=== PATIENT | male | born 1955 | race Caucasian/White ===

== ENCOUNTER 2023-07-22 13:46 | Emergency (ER) | payer MEDICARE, OTHER, SELFPAY ==
[2023-07-22 13:50] VITALS: BP 167/85
[2023-07-22 13:59] VITALS: BMI 24.3
[2023-07-22 14:00] VITALS: BP 150/76
[2023-07-22 14:49] LABS: % Basophils 0.7 % (0-2); % Eosinophils 1.5 % (0-6); % Immature Granulocytes 0.3 % (0-0.5); % Monocytes 8.5 % (1.7-9.3); Absolute Eosinophils 0.1 10^3/uL (0-0.7); Absolute Monocytes 0.5 10^3/uL (0.1-0.6); Absolute Neutrophils 3.5 10^3/uL (1.4-6.5); Hematocrit 41.8 % (39.0-52.0); Hemoglobin 14.7 g/dL (13.0-18.0); Mean Corp Hgb Conc. 35.2 g/dL (33.0-37.0); Mean Corpuscular Hgb 29.8 pg (27.0-31.0); Mean Corpuscular Volume 84.6 fL (80.0-94.0); Mean Platelet Volume 8.5 fL (7.4-10.4); Nucleated Red Blood Cells % 0 % (-); Platelet Count 195 10^3/uL (130-400); Red Blood Cell Count 4.94 10^6/uL (4.70-6.10); White Blood Cell Count 6.1 10^3/uL (4.8-10.8)
[2023-07-22 14:58] LABS: INR 1.09; PT 13.9 Sec (11.4-14.6)
[2023-07-22 14:59] LABS: APTT 29.6 Sec (23.4-35.0)
[2023-07-22] MEDS: MORPHINE SULFATE 4 MG IV (14:59)
[2023-07-22 15:00] VITALS: BP 154/99
--- NOTE | 2023-07-22 15:26 | EDRN ---
Per Dr. Sweeney okay to wait on EKG until we can get pt more comfortable and have a non artifact EKG.
[2023-07-22] MEDS: DILAUDID 0.5 MG IV (16:40)
--- NOTE | 2023-07-22 17:43 | ED.GENMED ---
History of Present Illness
General
Chief Complaint: Fall
Source: patient and family (Daughters)
Exam Limitations: none
Time Seen by Provider: 07/22/23 14:20
Nursing documentation reviewed up to this point in time: agreed with
Travel History
Have you had any contact with someone who has COVID-19?: No
Do you have any symptoms of coronavirus? Fever > 100 degrees, chills, cough, shortness of breath, sore throat, loss of taste or smell, muscle aches, or headache?: No
History of Present Illness
History of Present Illness:
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
room with his daughter for evaluation after a fall. Patient walks with a walker at baseline. Apparently he tripped today in the house and fell forward. He hit his head on the floor. He did not lose consciousness. He landed on his right hip and
has had significant pain in the hip since. He denies any significant headache. Denies any neck pain. Denies any chest or abdominal pain. He denies any back pain. He denies any other complaints. He is not on any blood thinners.
Past History
Past History
ED Past Medical History: None
ED Past Surgical History: None
Social History
Tobacco: Non-smoker
Alcohol: None
Drug: None
Living: with family
Review of Systems
Review of Systems
All Other Systems: ROS reviewed and negative except as documented in HPI and ROS
Constitutional: Denies fever
Respiratory: Denies trouble breathing
Cardiac: Denies chest pain
ABD/GI: Denies abdominal pain, nausea or vomiting
: Denies flank pain
Musculoskeletal: Reports joint pain; Denies neck pain or back pain
Neurological: Denies dizzy or headache
Phy Exam
Physical Exam
Physical Exam:
General: Awake, alert, no acute distress
Head: Normocephalic, minor contusion to the left parietal scalp
Eyes: Conjunctiva normal, pupils equal round and reactive to light bilateral
Throat: Airway intact, handling secretions
Neck: Trachea midline, no cervical spine tenderness
Lungs: Clear to auscultation bilaterally, no wheezing, rales, rhonchi
Heart: Regular rate and rhythm, no murmurs, gallops, or rubs; no rib tenderness
Abd: Soft, non distended, nontender
Neuro: GCS 15, awake, alert
Skin: Contusion of the left parietal scalp, no lacerations or abrasions noted, skin grafting of the right lateral hip
Extremities: Patient has shortened and rotated right lower extremity, significant tenderness of the lateral hip on the right and pain with any attempts at motion of the right hip; no tenderness in the rest of the right lower extremity and he has a
good strong right DP pulse as well as a strong right femoral pulse; he has no tenderness over pain with movement of the left hip and no tenderness in the rest of the left lower extremity, no signs of trauma to the upper extremities and moving
comfortably
Scores
Heart Failure Risk
Heart Failure Risk Score: Not Applicable
Heart Score for Chest Pain Patients
STEMI patient?: Not applicable
Withdrawal Assessment of Alcohol
Withdrawal Assessment Completed?: Not applicable
Course
Orders/Labs/Results
Orders:
Orders
07/22/23 14:23
Electrocardiogram (*1) Urgent
Reason for Study: PreOp
CT Cervical Spine W/o Iv Contr Urgent
Comment:
Reason For Exam: fall with headstrike
CT Head W/o Iv Contrast Urgent
Comment:
Reason For Exam: fall with headstrike
EKG- Treatment ONCE
CR Hip - RT w/wo Pel 2-3 Vw* Urgent
Comment:
Reason For Exam: right hip pain s/p fall
Include a pelvis x-ray?: Yes
07/22/23 14:39
Complete Blood Count/With Diff Urgent
PTT Urgent
Prothrombin Time Urgent
07/22/23 14:49
Morphine Sulfate 4 mg IV NOW STA
07/22/23 16:32
HYDROmorphone [Dilaudid] 0.5 mg IV NOW STA
07/22/23 17:52
HYDROmorphone [Dilaudid] 1 mg IV NOW STA
Ketorolac [Toradol] 15 mg IV NOW STA
07/22/23 17:59
Comprehensive Metabolic Panel Urgent
07/22/23 14:39
Vital Signs
Initial and Last Documented VS:
Initial Vital Signs
Temp Pulse Resp BP Pulse Ox
36.9 C 87 18 167/85 97
07/22/23 13:50 07/22/23 13:50 07/22/23 13:50 07/22/23 13:50 07/22/23 13:50
Last Documented Vital Signs
Temp Pulse Resp BP Pulse Ox
36.9 C 67 15 154/99 97
07/22/23 13:50 07/22/23 16:45 07/22/23 16:45 07/22/23 15:00 07/22/23 16:09
MDM/Problems Addressed
Differential Diagnosis Includes:
Hip fracture, hip dislocation, hip contusion
MDM/Problems Addressed:
67-year-old male presents for evaluation after a fall at home with right hip injury. He is not on blood thinners. He did hit his head but did not lose consciousness. Hypertensive but otherwise normal vitals. Physical exam as above. Concern for
hip fracture. Will place an IV send basic labs including a CBC and a CMP, coags. Check CT head and cervical spine. Check x-ray of the hip and pelvis. Will treat pain. Reassess after the above.
CT head and cervical spine negative for any acute posttraumatic injury. X-ray of the hip confirms right hip fracture. Discussed case with orthopedics here�given his complicated anatomy with multiple prior surgeries in the area recommended transfer
to a tertiary care center.
Case discussed with orthopedics and emergency room attending at [facility] accepted for transfer to [facility] by Dr. Papo Alan. Will monitor pending transport.
Chronic conditions affecting care:
Primary lateral sclerosis
Acute Exacerbation and/or Progression of Chronic Illness:
Acutely hypertensive likely related to pain�treat pain but no emergent antihypertensive therapy indicated at present
Acute Exacerbation and/or Progression of Chronic Illness: HTN
*Radiology
Radiology exam reviewed: preliminary read by ED provider and radiology read reviewed
*Pulse Oximetry
Patient hypoxic: no
*Critical Care Note
Total Time (30-74mins, 75-104mins- exclusive of procedures): Not Applicable
Data Reviewed
Review of Other/Old Records Reveals: Labs and Radiology Studies
Source: patient and family
Patient Management
Discussion with other providers: Airline Operations Agent (Discussed with orthopedics)
Escalation/DeEscalation of care consider admission/obs:
Admission indicated�transfer to tertiary center
ED Attending Note
-
Portions of this chart may have been created with voice recognition software.� Occasional wrong word or��sound alike� substitutions may have occurred due to the inherent limitations of voice recognition software.
Discharge Plan
Departure
Patient Disposition: Acute Care Hospital
Date of Disposition: 07/22/23
Time of Disposition: 17:50
Discharge Problem:
Closed fracture of right hip
Prescriptions:
No Action
cholecalciferol (vitamin D3) [Vitamin D3] 25 mcg (1,000 unit) Tablet
25 mcg PO DAILY
Medical Marijuana
1 ml PO DAILYPRN PRN (Reason: anxiety/stress/pain)
Referrals:
Maria Esther Srinivasan DO [Family Provider] -
Hospital Transfer
Other hospital: [facility]
I certify that the patient requires transfer: Yes
Discussed case with accepting physician: Dr. Papo Alan
Reason for transfer: higher level of care and specialties available
Interventions
Interventions:
*Risk Screen - Suicide Last Done: 07/22/23 13:50
*General Assessment Last Done: 07/22/23 13:50
*Neglect/Abuse Screening Last Done: 07/22/23 13:50
ED- Fall Risk Assessment Last Done: 07/22/23 15:08
ED-Musculoskeletal Assessment Last Done: 07/22/23 15:08
ED- Neurological Assessment Last Done: 07/22/23 15:08
ED-Skin Assessment Last Done: 07/22/23 15:08
Discharge Date and Time
Print Language: DANISH
[2023-07-22] MEDS: DILAUDID 1 MG IV (17:57)
[2023-07-22] MEDS: TORADOL 15 MG IV (17:57)
[2023-07-22 18:30] LABS: ALT (SGPT) 32 U/L (0-50); AST (SGOT) 31 U/L (17-59); Albumin 4.2 g/dl (3.5-5.0); Alkaline Phosphatase 126 U/L (38-126); Blood Urea Nitrogen 13 mg/dl (9-20); Carbon Dioxide 28 mmol/L (22-30); Chloride 108 mmol/L (98-107); Estimated Creatinine Clearance 83 ml/min; Glucose 87 mg/dl (70-99); Potassium 3.9 mmol/L (3.5-5.1); Sodium 142 mmol/L (135-145); Total Bilirubin 0.5 mg/dl (0.2-1.3); Total Protein 6.7 g/dl (6.3-8.2); eGFR > 60.00
== END 2023-07-22 19:19 | disposition short-term general hospital (02) ==
LOC: EMR 13:46
PROVIDERS: EMERGENCY PHYSICIAN Emergency Medicine; FAMILY PHYSICIAN Student in an Organized Health Care Education/Training Program
DX: S72.001A Fracture of unspecified part of neck of right femur, initial encounter for closed fracture (principal); W01.0XXA Fall on same level from slipping, tripping and stumbling without subsequent striking against object, initial encounter; G12.23 Primary lateral sclerosis; I10 Essential (primary) hypertension
CPT/HCPCS: 99284; 96374; 96375; 96376; 70450; 72125; 73502; 80053; 85025; 85610; 85730

== ENCOUNTER → 2023-09-06 11:30 | Outpatient (REF) | payer MEDICARE, OTHER, SELFPAY | LOC: RAD 11:30 | PROVIDERS: ATTENDING PHYSICIAN Family Medicine | DX: M25.361 Other instability, right knee (principal) | CPT/HCPCS: 73564 ==

== ENCOUNTER 2023-10-13 10:57 | Outpatient (RCR) | payer MEDICARE, OTHER, SELFPAY | END 2023-10-13 23:59 | disposition home or self-care (01) | LOC: RPT 10:57 | PROVIDERS: ATTENDING PHYSICIAN Physician Assistant; FAMILY PHYSICIAN Internal Medicine Geriatric Medicine | DX: R26.89 Other abnormalities of gait and mobility (principal); S72.141D Displaced intertrochanteric fracture of right femur, subsequent encounter for closed fracture with routine healing; X58.XXXD Exposure to other specified factors, subsequent encounter; Z73.6 Limitation of activities due to disability | CPT/HCPCS: 97110; 97162; 97530 ==

== ENCOUNTER 2023-11-08 11:00 | Outpatient (RCR) | payer MEDICARE, OTHER, SELFPAY | END 2023-11-13 07:37 | disposition home or self-care (01) | LOC: RPT 11:00 | PROVIDERS: ATTENDING PHYSICIAN Physician Assistant; FAMILY PHYSICIAN Internal Medicine Geriatric Medicine | DX: S72.141A Displaced intertrochanteric fracture of right femur, initial encounter for closed fracture (principal); R26.89 Other abnormalities of gait and mobility; Z73.6 Limitation of activities due to disability | CPT/HCPCS: 97110; 97112; 97140 ==